=== PATIENT | male | born 1935 | race Caucasian/White ===

== ENCOUNTER 2019-02-18 14:14 | Emergency (ER) | payer MEDICARE ==
[~2019-02-18] VITALS: Ht 177.8 cm; Wt 90.7 kg
--- OUTSIDE RECORDS SUMMARY | 2019-02-18 14:18 | XMS REPORT | Clinical Summary ---
Author Author [facility] [place] [facility] Address Unknown Phone Unavailable Care Team Providers Care Nurse Navigator Name Role Phone Atif Gonzalez MD PCP Allergies Comments Active Allergy Reactions Severity Noted Date No Known Drug Allergies 04/02/2016 Medications End Date Status Medication Sig Dispensed Refills Start Date Active yokbuhyjchfc-vlvoodwz-rhv Centrum 0 ein tablet Silver tablet 1 Active vitamin E 400 UNIT vitamin E 400 0 capsule unit capsule 1 Active ascorbic acid (ascorbic Take 500 mg 0 acid with jahaira hips) 500 by mouth MG tablet daily. Active cholecalciferol, vitamin Take 2,000 0 D3, (VITAMIN D3) 2,000 Units by unit capsule capsule mouth daily. Active turmeric, bulk, 95 % 0 powder Active fexofenadine (GAYE) 60 Take 60 mg by 0 MG tablet mouth daily. Active levothyroxine (SYNTHROID, TAKE 1 TABLET 90 tablet 3 LEVOXYL) 100 mcg tablet EVERY DAY 8 DIRECTED Active naproxen sodium (ALEVE Take by 0 ORAL) mouth. 09/08/2019 Active amLODIPine (NORVASC) 5 mg Take 1 tablet 90 tablet 3 tablet (5 mg total) 8 by mouth 2 (two) times a day. Active hydroCHLOROthiazide TAKE 1 TABLET 90 tablet 3 (HYDRODIURIL) 25 MG EVERY DAY 8 tablet Active atorvastatin (LIPITOR) 10 TAKE 1 TABLET 90 tablet 3 MG tablet EVERY DAY 8 12/05/2019 Active testosterone (ANDROGEL) 1 PLACE 5 MG ON 90 packet 3 % (50 mg/5 gram) gel in THE SKIN 9 packetIndications: DAILY Panhypopituitarism (HCC) Active apixaban (ELIQUIS) 2.5 mg Take 1 tablet 180 tablet 3 tablet (2.5 mg 9 total) by mouth 2 (two) times a day. 03/18/2018 Discontinued levothyroxine (SYNTHROID, TK 1 T PO QD 3 LEVOTHROID) 100 MCG 6 tablet 08/24/2018 Discontinued metoprolol tartrate metoprolol 0 (LOPRESSOR) 25 MG tablet tartrate 25 mg tablet - Take 75 mg twice as needed 08/24/2018 Discontinued loratadine (CLARITIN) 10 Take 10 mg by 0 mg tablet mouth daily. 08/24/2018 Discontinued cetirizine (ZyrTEC) 10 MG Take 10 mg by 0 tablet mouth daily. 05/18/2018 Discontinued testosterone (ANDROGEL) 1 PLACE 5 MG ON 3 % (50 mg/5 gram) gel in THE SKIN D 7 packet 08/09/2018 Discontinued apixaban (ELIQUIS) 2.5 mg Take 1 tablet 180 tablet 2 tablet (2.5 mg 7 total) by mouth 2 (two) times a day. 08/09/2018 Discontinued atorvastatin (LIPITOR) 10 TAKE 1 TABLET 90 tablet 3 MG tablet EVERY DAY 7 10/09/2018 Discontinued hydroCHLOROthiazide Take 1 tablet 90 tablet 3 (HYDRODIURIL) 25 MG (25 mg total) 7 tablet by mouth daily. 09/08/2018 Discontinued amlodipine-valsartan Take 1 tablet 90 tablet 3 (EXFORGE) 10-320 mg per by mouth 7 tablet daily. 03/21/2018 Discontinued levothyroxine (SYNTHROID, TK 1 T PO QD 90 tablet 3 LEVOXYL) 100 mcg tablet 8 12/05/2018 Discontinued testosterone (ANDROGEL) 1 PLACE 5 MG ON 90 packet 3 % (50 mg/5 gram) gel in THE SKIN 8 packet DAILY 12/26/2018 Discontinued apixaban (ELIQUIS) 2.5 mg Take 1 tablet 180 tablet 2 tablet (2.5 mg 8 total) by mouth 2 (two) times a day. 10/09/2018 Discontinued atorvastatin (LIPITOR) 10 Take 1 tablet 90 tablet 3 10/03/201 MG tablet (10 mg total) 8 by mouth daily. 09/08/2018 Discontinued amLODIPine (NORVASC) 5 mg Take 1 tablet 90 tablet 3 tablet (5 mg total) 8 by mouth daily. 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 History of atrial fibrillation 06/02/2016 Hyperlipidemia 06/02/2016 Encounters Care Team Description Date Type Specialty Eleazar Calvo MD 02/03/2019 Orders Only Cardiology Eleazar Calvo MD Med Refill 12/26/2018 Refill Cardiology Radha Galeano MA Panhypopituitarism (HCC) (Primary Dx) 12/05/2018 Refill Endocrinology Lluvia Nice MD Med Refill 10/09/2018 Refill Cardiology Eleazar Calvo MD Med Refill 10/09/2018 Refill Cardiology Jessika Manuel MA 09/22/2018 Orders Only Cardiology Radha Galeano MA 09/22/2018 Telephone Endocrinology Eliana Stokes MA cardiac clearance (colonscopy) 09/22/2018 Telephone Cardiology Lluvia Nice MD Paroxysmal atrial fibrillation (HCC) (Primary Dx); SOB (shortness of breath); Essential hypertension 09/08/2018 Office Visit Cardiology Lluvia Nice MD 09/08/2018 Orders Only Cardiology Luiz Johnson MD Panhypopituitarism (HCC) (Primary Dx); Hypophysectomy-induced hypopituitarism (HCC) 08/24/2018 Office Visit Endocrinology Evaristo James RN Med Refill 08/09/2018 Refill Cardiology Angela Bonner RN Med Refill 08/09/2018 Refill Cardiology Luiz Johnson MD 05/18/2018 Orders Only Endocrinology Luiz Johnson MD 03/21/2018 Refill Endocrinology Radha Galeano MA 03/18/2018 Refill Endocrinology Eleazar Calvo MD 03/07/2018 Orders Only Cardiology Eleazar Calvo MD Paroxysmal atrial fibrillation (Primary Dx) 03/04/2018 Office Visit Cardiology Luiz Johnson MD Panhypopituitarism (Primary Dx) 02/22/2018 Office Visit Endocrinology after 02/17/2018 Family History Medical History Relation Name Comments Heart disease Brother at age 76 Cancer Father Colon Heart disease Father Heart disease Mother at age 97 Hypertension Mother Relation Name Status Comments Brother Father Mother Other Family There is no family history of premature coronary History artery disease. Social History Date Tobacco Use Types Packs/Day Years Used Never Smoker Smokeless Tobacco: Never Used Tobacco Cessation: Counseling Given: No Alcohol Use Drinks/Week oz/Week Comments Yes Occasional Sex Assigned at Date Recorded Not on file Industry Job Start Date Occupation Not on file Not on file Not on file Travel End Travel History Travel Start No recent travel history available. Last Filed Vital Signs Time Taken Vital Sign Reading 09/08/2018 9:21 AM CDT Blood Pressure 127/62 09/08/2018 9:21 AM CDT Pulse 74 - Temperature - - Respiratory Rate - 03/04/2018 1:18 PM CDT Oxygen Saturation 97% - Inhaled Oxygen - Concentration 09/08/2018 9:21 AM CDT Weight 80.7 kg (178 lb) 09/08/2018 9:21 AM CDT Height 177.8 cm (5' 10") 09/08/2018 9:21 AM CDT Body Mass Index 25.54 Plan of Treatment Care Team Description Date Type Specialty Luiz Johnson MD [address] [place] [address] 02/22/2019 Office Visit Endocrinology Eleazar Cavlo MD [address] [facility] [place] [address] 03/03/2019 Office Visit Cardiology Health Maintenance Due Date Last Done Comments SHINGLES VACCINES (#1) 1983 65+ PNEUMOCOCCAL VACCINE 1998 (1 of 2 - PCV13) PNEUMOCOCCAL 1998 POLYSACCHARIDE VACCINE AGE 65 AND OVER INFLUENZA VACCINE 06/08/2019 Implants Device Identifier Shelf Expiration Date Model / Serial / Lot Implanted Type Area Manufactur er 02/05/2018 [id number] / [id number] / [id number] Pacemaker Assurity Dual Rate Rf - Cardiac N/A: N/A ST DEYA [id number] - [id number] Pacemaker MEDICAL Implanted: Qty: 1 on 08/14/2016 by [employer] Eleazar Calvo MD 06/07/20198TC/58 / [id number] / [id number] Tendril Sts, Pacemaker Leads, Model Cardiac N/A: N/A ST. DEYA [id number] - [id number] Pacing MEDICAL Implanted: 08/14/2016 (Quantity not Leads or on file) Electrodes or Accessorie s 11/07/2018 1882TC/52 / [id number] / [id number] 52cm Tendril St 1882tc Cardiac N/A: N/A ST. DEYA Active-Fixation Bipolar Steroid Pacing MEDICAL -Eluting Endocardial Pacing Lead - Leads or [id number] Electrodes Implanted: 08/14/2016 (Quantity not or on file) Accessorie s Procedures Comments Procedure Name Priority Date/Time Associated Diagnosis CV PACEMAKER DEFIB ILR Routine 10/03/2018 INTERROGATION ECHOCARDIOGRAM 2D Routine 09/16/2018 SOB (shortness of breath) COMPLETE W MMODE SPECTRAL 1:38 PM ELECTRONICS RESEARCH ENGINEER COLOR DOPPLER (03789) ECG 12-LEAD Routine 09/08/2018 Paroxysmal atrial 9:20 AM CDT fibrillation (HCC) CV PACEMAKER DEFIB ILR Routine 09/08/2018 INTERROGATION THYROID STIMULATING Routine 08/24/2018 Panhypopituitarism (HCC) HORMONE 9:20 AM CDT Hypophysectomy-induced hypopituitarism (HCC) T4, FREE Routine 08/24/2018 Panhypopituitarism (HCC) 9:20 AM CDT Hypophysectomy-induced hypopituitarism (HCC) BASIC METABOLIC PANEL Routine 08/24/2018 Panhypopituitarism (HCC) 9:20 AM CDT Hypophysectomy-induced hypopituitarism (HCC) TESTOSTERONE LEVEL, FREE Routine 08/24/2018 Panhypopituitarism (HCC) AND TOTAL, MALE 9:20 AM CDT Hypophysectomy-induced hypopituitarism (HCC) PROLACTIN LEVEL Routine 08/24/2018 Panhypopituitarism (HCC) 9:20 AM CDT Hypophysectomy-induced hypopituitarism (HCC) CORTISOL LEVEL, RANDOM Routine 08/24/2018 Panhypopituitarism (HCC) 9:20 AM CDT Hypophysectomy-induced hypopituitarism (HCC) CV PACEMAKER DEFIB ILR Routine 03/07/2018 INTERROGATION ECG 12-LEAD Routine 03/04/2018 Paroxysmal atrial 1:24 PM CDT fibrillation INSULIN-LIKE GROWTH Routine 02/22/2018 Panhypopituitarism FACTOR I LEVEL (IGF-1) 9:05 AM CDT THYROID STIMULATING Routine 02/22/2018 Panhypopituitarism HORMONE 9:05 AM CDT BASIC METABOLIC PANEL Routine 02/22/2018 Panhypopituitarism 9:05 AM CDT TESTOSTERONE LEVEL, FREE Routine 02/22/2018 Panhypopituitarism AND TOTAL, MALE 9:05 AM CDT PROLACTIN LEVEL Routine 02/22/2018 Panhypopituitarism 9:05 AM CDT T4, FREE Routine 02/22/2018 Panhypopituitarism 9:05 AM CDT ADRENOCORTICOTROPIC Routine 02/22/2018 Panhypopituitarism HORMONE 9:05 AM CDT CORTISOL LEVEL, RANDOM Routine 02/22/2018 Panhypopituitarism 9:05 AM CDT after 02/17/2018 Results * CV pacemaker defib or ilr interrogation (10/03/2018) Narrative Performed At * Echocardiogram complete w contrast and 3D if needed (09/16/2018 1:38 PM ELECTRONICS RESEARCH ENGINEER) Narrative Performed At [facility] Echocardiography Report Pat.Name:ECTOR RO RPat.ID:[id number] .Date: 09/16/2018 Refer.MD:LLUVIA NICE MD Exam Time: 10:03:00 AM Study Type:Routine Echo Height:70inWeight:178lb BSA: 1.99 m2 DOBAge:1935,83Y Sex: MALEBP:127/62 HR:69 bpm Sonogrphr: OKSANA Luna FASE Pat. Stat.:OutpatientRoom:[facility] Study Status:Final Echo Event ID:[id number] Order ID:[id number] Reason for Study:SOB, suspected cardiac etiology History / Clinical:Atrial Fibrillation, Hyperlipidemia, Shortness of breath Procedures:2D Echo, Colorflow Doppler Race:C SUMMARY: LV size is normal. LV EF is normal. FINDINGS: LV: LV size is normal. LV EF is normal. Overall wall motion is normal.Estimated EF is 60-64%. RV: RV size is normal. A pacemaker wire is seen in the RV. RV systolicfunction is normal. LA: LA size is normal. RA: RA volume is normal. A pacemaker wire is seen. AO: Aortic root diameter is normal. DEANNA: No pericardial effusion. AV: Mild thickening and calcification of AV leaflets. MV: No structural MV abnormalities noted. PV: Pulmonic valve not well seen. A trace of pulmonic regurgitation. TV: No structural TV abnormalities noted. Mild tricuspid regurgitation Ortega: Normal diastolic function. Other:Estimated PA systolic pressure is 30 mmHg, assuming a mean RAPof 5 mmHg. MEASUREMENTS: 2D Parasternal [place] LVOT 2.2 cmLA Ds3.8 cm LVIDd4.4 cmIndex2.2 cm/m Ao An2.2 cm LVIDs3.4 cmAo Rtd 3.8 cm Index1.9 cm/m LV%fs 23.4 % LV Epzu287.5 g(122-174) IVSd 1.2 cmLVM Index 87.2 g/m2 LVPWd1 cmRWT0.5 LA Sng Plane LA Area 15.4 cm2(8.8-23.4) LA Vol42 ml Index21.1 ml/m LA LngAx 4.8 cm Signed 09/16/2018 02:22 PM Bam Manuel MD Procedure Note Interface, Radiology Results In - 09/16/2018 2:22 PM ELECTRONICS RESEARCH ENGINEER [facility] Ech[facility]ography Report Pat.Name: ECTOR RO Pat.ID: [id number] .Date: 09/16/2018 Refer.MD: LLUVIA NICE MD Exam Time: 10:03:00 AM Study Type:Routine Echo Height: 70in Weight: 178lb BSA: 1.99 m2 Age: 9 1935,83Y Sex: MALE BP: 127/62 HR: 69 bpm Sonogrphr: OKSANA Luna FASE Pat. Stat.:Outpatient Room: [facility] Study Status:Final Echo Event ID:[id number] Order ID: [id number] Reason for Study:SOB, suspected cardiac etiology History / Clinical:Atrial Fibrillation, Hyperlipidemia, Shortness of breath Procedures:2D Echo, Colorflow Doppler Race: C SUMMARY: LV size is normal. LV EF is normal. FINDINGS: LV: LV size is normal. LV EF is normal. Overall wall motion is normal. Estimated EF is 60-64%. RV: RV size is normal. A pacemaker wire is seen in the RV. RV systolic function is normal. LA: LA size is normal. RA: RA volume is normal. A pacemaker wire is seen. AO: Aortic root diameter is normal. DEANNA: No pericardial effusion. AV: Mild thickening and calcification of AV leaflets. MV: No structural MV abnormalities noted. PV: Pulmonic valve not well seen. A trace of pulmonic regurgitation. TV: No structural TV abnormalities noted. Mild tricuspid regurgitation Ortega: Normal diastolic function. Other: Estimated PA systolic pressure is 30 mmHg, assuming a mean RAP of 5 mmHg. MEASUREMENTS: 2D Parasternal [place] LVOT 2.2 cm LA Ds 3.8 cm LVIDd 4.4 cm Index 2.2 cm/m Ao An 2.2 cm LVIDs 3.4 cm Ao Rtd 3.8 cm Index 1.9 cm/m LV%fs 23.4 % LV Mass 173.5 g (122-174) IVSd 1.2 cm LVM Index 87.2 g/m2 LVPWd 1 cm RWT 0.5 LA Sng Plane LA Area 15.4 cm2 (8.8-23.4) LA Vol 42 ml Index 21.1 ml/m LA LngAx 4.8 cm Signed 09/16/2018 02:22 PM Bam Manuel MD Performing Organization Address [facility] Phone Number [facility] [address] [place] [address] * ECG 12 lead (09/08/2018 9:20 AM CDT) Only the most recent of 2 results within the time period is included. Ventricular rate 71 [facility] Atrial rate 75 [facility] QRSD interval 98 [facility] QT interval 396 [facility] QTC interval 430 [facility] P axis 1 -61 [facility] QRS axis 1 2 [facility] T wave axis -9 [facility] EKG impression Atrial-paced rhythm with [facility] MUSE prolonged AV conduction-Low voltage QRS-Nonspecific ST abnormality-Abnormal ECG- Performing Organization Address [facility] Phone Number [facility] [address] [place] [address] * CV pacemaker defib or ilr interrogation (09/08/2018) Narrative Performed At * Prolactin level (08/24/2018 9:20 AM CDT) Only the most recent of 2 results within the time period is included. Prolactin 6.7 2.0 - 18.0 ng/mL [facility] [place] Specimen Blood Narrative Performed At FASTING:NO [facility] FASTING: NO Resulting Agency Comment Performing Organization Information: Site ID: [id number] Name: [facility] Address: [address] [place] [phone] Director: Shavon Chand Performing Organization Address [facility] Phone [place] [address] * Testosterone level, free and total, male (08/24/2018 9:20 AM CDT) Only the most recent of 2 results within the time period is included. Testosterone, total, 362 250 - 1,100 ng/dL [facility] lc/ms/ms Comment: SAMY BEASLEY Men with clinically significant hypogonadal symptoms and testosterone values repeatedly in the range of the 200-300 ng/dL or less, may benefit from testosterone treatment after adequate risk and benefits counseling. Testosterone, free 34.7 30.0 - 135.0 pg/mL [facility] Comment: SAMY BEASLEY Data from J Clin Invest 1974:53:819-828 and J Clin Endocrinol Metab 1973;36:3102-9776. Men with clinically significant hypogonadal symptoms and testosterone values repeatedly in the range of the 200-300 ng/dL or less, may benefit from testosterone treatment after adequate risk and benefits counseling. For additional information, please refer to http://[email or web address].Audit Verify/faq/FNM690 (This link is being provided for informational/ educational purposes only.) This test was developed and its analytical performance characteristics have been determined by [facility]. It has not been cleared or approved by the US Food and Drug Administration. This assay has been validated pursuant to the CLIA regulations and is used for clinical purposes. Specimen Blood Narrative Performed At FASTING:NO [facility] FASTING: NO Resulting Agency Comment Performing Organization Information: Site ID: [id number] Name: [facility] Address: [address] [place] [phone] Director: Mukul Leigh M.D., Ph.D Performing Organization Address City/[facility] Phone Number [facility] [address] [address] [place] * Thyroid stimulating hormone (08/24/2018 9:20 AM CDT) Only the most recent of 2 results within the time period is included. TSH 1.14 0.40 - 4.50 mIU/L [facility] [employer] [place] Specimen Blood Narrative Performed At FASTING:NO [facility] FASTING: NO Resulting Agency Comment Performing Organization Information: Site ID: [id number] Name: [facility] Address: [address] [place] [address] Director: Shavon Chand Performing Organization Address [facility] Phone Number [facility] [address] [address] * T4, free (08/24/2018 9:20 AM CDT) Only the most recent of 2 results within the time period is included. T4, free 0.9 0.8 - 1.8 ng/dL [facility] [place] Specimen Blood Narrative Performed At FASTING:NO [facility] FASTING: NO Resulting Agency Comment Performing Organization Information: Site ID: [facility] Name: [facility] Address: [address] [place] [phone] Director: Shavon Chand Performing Organization Address [facility] [place] [address] * Cortisol level, random (08/24/2018 9:20 AM CDT) Only the most recent of 2 results within the time period is included. Cortisol, random 5.5 mcg/dL [facility] Comment: [place] Reference Range: For 8 a.m.(7-9 a.m.) Specimen: 4.0-22.0 Reference Range: For 4 p.m.(3-5 p.m.) Specimen: 3.0-17.0 * Please interpret above results accordingly * Specimen Blood Narrative Performed At FASTING:NO [facility] FASTING: NO Resulting Agency Comment Performing Organization Information: Site ID: [facility] Name: [facility] Address: [address] [place] [phone] Director: Shavon Chand Performing Organization Address [facility] [place] [address] * Basic metabolic panel (08/24/2018 9:20 AM CDT) Only the most recent of 2 results within the time period is included. Glucose 83 65 - 139 mg/dL [facility] Comment: [place] Non-fasting reference interval BUN, whole blood 23 7 - 25 mg/dL [facility] [place] Creatinine 1.09 0.70 - 1.11 mg/dL [facility] Comment: [place] For patients >49 years of age, the reference limit for Creatinine is approximately 13% higher for people identified as -Mozambican. EGFR Non-Afr. Moz[place]ican 62 > OR=60 mL/min/1.73m2 [facility] [employer] [place] EGFR 72 > OR=60 mL/min/1.73m2 [facility] [employer] [place] BUN/creatinine ratio NOT APPLICABLE 6 - 22 (calc) [facility] [place] Sodium 142 135 - 146 mmol/L [facility] [place] Potassium 4.1 3.5 - 5.3 mmol/L [facility] [place] Chloride 105 98 - 110 mmol/L [facility] [place] CO2 32 20 - 32 mmol/L [facility] [employer] [place] Calcium 9.3 8.6 - 10.3 mg/dL [facility] [place] Specimen Blood Narrative Performed At FASTING:NO [facility] FASTING: NO Resulting Agency Comment Performing Organization Information: Site ID: [id number] Name: [facility] Address: [address] [place] [phone] Director: Shavon Chand Performing Organization Address City/[facility] Phone Number [facility] [address] [address] * CV pacemaker defib or ilr interrogation (03/07/2018) Narrative Performed At * Insulin-like growth factor I level (IGF-1) (02/22/2018 9:05 AM CDT) IGF-1 29 (L) 34 - 246 ng/mL [facility] [facility] Z score (male) -2.2 (L) -2.0 - 2.0 SD [facility] Comment: [employer] This test was developed and [facility] its analytical performance characteristics have been determined by [facility]. It has not been cleared or approved by FDA. This assay has been validated pursuant to the CLIA regulations and is used for clinical purposes. Specimen Blood Narrative Performed At FASTING:NO [facility] FASTING: NO Resulting Agency Comment Performing Organization Information: Site ID: [id number] Name: [facility], Address: [address] [place] [phone] Director: Radha Salmeron MD,PhD,GANESH Performing Organization Address City/[facility] Phone Number [facility] [address] [place], [place] [phone] [facility] [id number] * Adrenocorticotropic hormone (02/22/2018 9:05 AM CDT) Adrenocorticotropic 27 6 - 50 pg/mL [facility] hormone Comment: [employer] Reference range applies only [facility] to the specimens collected between 7am-10am. Specimen Blood Narrative Performed At FASTING:NO [facility] FASTING: NO Resulting Agency Comment Performing Organization Information: Site ID: [id number] Name: [facility], Address: [address] [place] [phone] Director: Radha Salmeron MD,PhD,GANESH Performing Organization Address City/State/Zipcode Phone Number [facility] [address] [place], [place] [phone] [facility] [id number] after 02/17/2018 Insurance Payer Benefit Subscriber ID Type Phone Address Plan / Group HUMANA MEDICARE HUMANA xxxxxxxxx PPO MEDICARE PPO/PFFS/E RS [facility] Advance Directives Patient has advance care planning documents on file. For more information, cherri mane contact: Bryson Solomon [address] [place] [address]
--- NOTE | 2019-02-18 15:25 | Diagnostic Imaging Report ---
EXAMINATION: CXR 2 VIEW - HOPD INDICATION: Cough. COMPARISON: None FINDINGS: TUBES and LINES: Left-sided dual-chamber pacemaker with leads overlying the right atrium and right ventricle. LUNGS: Lungs are well inflated. There is mild patchy opacity in the right lower lung zone. No evidence of pulmonary edema. PLEURA: No pleural effusion or pneumothorax. HEART AND MEDIASTINUM: The cardiomediastinal silhouette is unremarkable. The aorta is ectatic with atherosclerotic calcifications. BONES AND SOFT TISSUES: No acute osseous abnormality. UPPER ABDOMEN: No free air under the diaphragm. IMPRESSION: Mild patchy opacity in the right lower lung could represent early pneumonia in the appropriate clinical setting. Suggest follow-up chest radiograph in 6-8 weeks to assess for resolution. Signed by: Dr. Wander Chaudhary MD on 02/18/2019 3:22 PM
[2019-02-18] MEDS ORDERED: CEFTRIAXONE SOD 1 GM/NS 50 ML 50 ML IV ONE (16:00)
== END 2019-02-18 15:53 | disposition home or self-care (01) ==
LOC: FSED 14:14
DX: R05 Cough (principal); J15.9 Unspecified bacterial pneumonia; K52.9 Noninfective gastroenteritis and colitis, unspecified; E87.6 Hypokalemia; I10 Essential (primary) hypertension
CPT/HCPCS: 71046; 80053; 82553; 84484; 85025; 93005; 99284; J0696